=== PATIENT | female | born 1995 | race Caucasian/White ===

== ENCOUNTER 2018-10-19 14:13 | Emergency (ER) | payer SELFPAY ==
[~2018-10-19] VITALS: Ht 165.1 cm; Wt 85.0 kg
[2018-10-19 14:39] VITALS: BP 110/62
[2018-10-19 15:18] LABS: BASOPHILS # (AUTO) 0.02 x10^3/uL (0-0.1); BASOPHILS % (AUTO) 1 % (0-1); EOSINOPHILS # (AUTO) 0.05 x10^3/uL (0-0.4); EOSINOPHILS % (AUTO) 1 % (1-7); LYMPHOCYTES # (AUTO) 2.22 x10^3/uL (1-3.4); LYMPHOCYTES % (AUTO) 49 % (22-44); MD NO; MEAN CORPUSCULAR HEMOGLOBIN 32.4 pg (27.0-34.8); MEAN CORPUSCULAR HGB CONC 33.7 g/dL (32.4-35.8); MEAN CORPUSCULAR VOLUME 96.2 fL (80-100); MEAN PLATELET VOLUME 7.4 fL (7.4-10.4); MONOCYTES # (AUTO) 0.57 x10^3/uL (0.2-0.8); MONOCYTES % (AUTO) 13 % (2-9); NEUTROPHILS # (AUTO) 1.71 x10^3/uL (1.8-6.8); NEUTROPHILS % (AUTO) 37 % (42-75); PLATELET COUNT 274 x10^3/uL (130-400); RED BLOOD COUNT 4.37 x10^6/uL (3.82-5.3); RED CELL DISTRIBUTION WIDTH 13.1 % (9.6-15.2)
[2018-10-19 15:28] LABS: ALBUMIN 3.8 g/dL (3.4-5.0); ANION GAP 5 mmol/L (5-15); CALCIUM 8.8 mg/dL (8.5-10.1); CHLORIDE 105 mmol/L (98-107)
--- NOTE | 2018-10-19 16:50 | NUR ---
ASSUMED CARE OF PT FROM LOBBY AT THIS TIME.
--- NOTE | 2018-10-19 17:12 | NUR ---
DR. FERNANDES AT BEDSIDE. PT A BIT DISGRUNTLED AFTER NOT GETTING SOMETING FOR PAIN BEYOND TYLENOL OR MOTRIN. PT STATES, "THAT SHIT DOES NOTHING FOR ME."
--- NOTE | 2018-10-19 17:14 | NUR ---
PT C/O PELVIC PAIN FOR 3 WEEKS AND WAS SEEN YESTERDAY AT [facility]. PT WAS DIAGNOSED WITH OVARIAN CYST YESTERDAY. RECORDS TO BE OBTAINED FROM [facility].
[2018-10-19 17:24] LABS: MICROSCOPIC AUTO
[2018-10-19 17:26] LABS: CULTURE INDICATED? YES
--- NOTE | 2018-10-19 17:33 | NUR ---
PT ELOPED FROM ROOM. SMALL PURSE FOUND IN ROOM AND GIVEN TO SECURITY.
== END 2018-10-19 17:35 | disposition left against medical advice (07) ==
LOC: ED 17:29
DX: N92.4 Excessive bleeding in the premenopausal period (principal)
CPT/HCPCS: 36415; 80048; 81001; 82040; 84703; 85025; 87086; 99283